=== PATIENT | male | born 1960 | race African-American/Black ===

== ENCOUNTER → 2016-07-25 | Outpatient (CLI) | payer OTHER ==
[~2016-07-25] MED LIST: ACETAMINOPHEN325 MG PO; HYDROCODONE/APA1 T16 PO; LISINOPRIL20 MG PO; METAMUCIL POWD174 GM PO; MILK OF MAGNESIA PO; NORCO1 TAB 10/3 PO; PHENERGAN25 M1 PO; PROCTOFOAM; PROCTOFOAM-HC10 G1 MC; SPIRONOLAC1 TAB 25/2 PO; STOOL SOFTENER100 M1 PO
--- NOTE | ~2016-07-25 | MR152 ---
[facility] A Service of [facility] & [facility] RADIOLOGY TEXT RESULTS PATIENT: VAN HENDRICKS [facility] : 64 UNIT #: [id number] AGE: [address]: Raoul Temple MD SEX: M ORDER DR: [id number] [facility] [address] [place], [place] [address] [id number] O MR#: [id number] Acc #: [id number] NAME: VAN HENDRICKS. : 1960 SEX: M STUDY DATE/TIME: 07/25/2016 16:33 UNIT: [facility] ROOM: STUDY DESCRIPTION: MR Pelvis Wo Contrast Attending Physician: Raoul Temple M.D. Referring Physician: Raoul Temple M.D. Ordering Physician: Raoul Temple M.D. Primary Care Physician: Mark Dia M.D. MRI CENTER REPORT This report is preliminary unless electronic signature is present. REVISED REPORT SEE ADDENDUM EXAM MRI pelvis and hips without contrast, 07/25/2016. COMPARISON Comparison - pelvis and hip radiographs 06/24/2016, and MRI lumbar spine 03/21/2014. HISTORY History - order states right hip pain. History sheet states right hip pain for 3-4 months. Repetitive use walking up and down stairs. Works for [employer] for 14 years. Pain radiates into the whole right leg into the upper thigh. No related surgery. FINDINGS The hips show no effusion, fracture, osteonecrosis, visible arthrosis, or obvious labral pathology. A tiny right anterior femoral head not cuff head - neck in the C K synovial herniation pit is incidentally noted. Fracture is incidentally noted on the right. Gluteal tendons are unremarkable. Groin lymph nodes are relatively symmetric and of doubtful significance. There is no internal pelvic lymphadenopathy. No hernia is identified. There is a 19 x 11 mm (transverse by AP) low signal prominence of the posterolateral peripheral portion of the prostate. Although this could be sequela of prior biopsy, prostate carcinoma is not excluded. A urologic consultation possibly to include endorectal ultrasound or prostate protocol MRI could be considered for further imaging evaluation. The lower lumbar region is unremarkable. [facility]. [facility] A Service [facility] RADIOLOGY TEXT RESULTS PATIENT: VAN HENDRICKS LOCATION: [facility] #: [id number] : 64 UNIT #: [id number] AGE: [address]: Raoul Temple MD SEX: M ORDER DR: There is an asymmetric appearance of the piriformis muscles. The right is smaller than the left, but there is no muscle edema. This is a nonspecific finding. Piriformis syndrome is typically not an imaging diagnosis. IMPRESSION 1. The hips and bony pelvis are within normal limits. 2. The right piriformis muscle is smaller than the left, but there is no fatty atrophy. This asymmetry is nonspecific. Piriformis syndrome is not typically an imaging diagnosis, but rather a diagnosis of exclusion. 3. 19 x 11 mm potential left posterolateral prostate lesion. Urologic consultation is recommended, potentially to include endorectal ultrasound or prostate protocol MRI. Prostate cancer is not excluded. 4. No definite lymphadenopathy. 5. Prostate findings called to Dr. Cole Herrmann (the on-call physician in Dr. Temple' absence) on 07/26/2016 at 10:35 a.m. The exam was reviewed by Dr. Bjorn Cotton (body imaging sub specialist). IMPRESSION Dictated by... Martina Baker M.D. TOBI/gz TD: 07/26/2016 14:26 JOB #: [id number] ADDENDUM The first paragraph in the findings has several typographical errors. The paragraph should read: The hips show no effusion, fracture, osteonecrosis, visible arthrosis, or obvious labral pathology. There is a tiny right anterior femoral head - neck synovial herniation pit which is an incidental finding. No fracture is identified. The gluteal tendons are unremarkable. [facility] A Service of [facility] RADIOLOGY TEXT RESULTS PATIENT: VAN HENDRICKS LOCATION: [facility] #: [id number] : 64 UNIT #: [id number] AGE: [address]: Raoul Temple MD SEX: M ORDER DR: STAT * RESULT Dictated by... Martina Baker M.D. THIS IS AN ELECTRONICALLY VERIFIED REPORT Martina Baker M.D. at 08/04/2016 1:54 PM TOBI/jaswinder TD: 08/04/2016 08:29 JOB #: [id number] MRI CENTER REPORT Page 1 of 1 COPY
== END | disposition home or self-care (01) ==
LOC: CMRI 07-18 16:00
DX: M25.551 Pain in right hip (principal); M89.9 Disorder of bone, unspecified
CPT/HCPCS: 72195